=== PATIENT | female | born 2000 | race Two or more races ===

== ENCOUNTER 2022-04-06 16:40 | Emergency (ER) | payer MEDICAID ==
[~2022-04-06] VITALS: Ht 167.6 cm; Wt 55.0 kg
[2022-04-06 17:19] VITALS: BP 110/71
[2022-04-06 17:53] LABS: CLARITY,URINE SLIGHTLY CLOUDY (Clear); COLOR,URINE STRAW (Yellow); GLUCOSE, URINE NEGATIVE (Neg); KETONES,URINE NEGATIVE (Neg); LEUKOCYTE ESTERASE ,URINE MODERATE (Neg); NITRITES, URINE NEGATIVE (Neg); OCCULT BLOOD,URINE NEGATIVE (Neg); PROTEIN,URINE NEGATIVE (Neg); URINE HCG POSITIVE (NEG); UROBILINOGEN,URINE 0.2 E.U/dL (0.2-1.0)
[2022-04-06 17:54] LABS: UA COLLECTION TYPE CLN CATCH MIDSTREAM
[2022-04-06 18:01] LABS: SQUAMOUS EPITHELIAL CELL,UR MODERATE /LPF (FEW)
[2022-04-06 18:02] LABS: BACTERIA,URINE 2+ /HPF (Neg); RBC,URINE 0-2 /HPF (0-2); WBC,URINE 0-4 /HPF (0-4)
[2022-04-06] MEDS ORDERED: ONDA4TAB12 PO (19:03)
[2022-04-06] MEDS ORDERED: CEPH250T PO (19:03)
[2022-04-06] MEDS ORDERED: ondansetron 4mg rapidly disintigrating tab PO ONE (19:05)
[2022-04-06] MEDS ORDERED: cephalexin 250mg capsule PO ONE (19:05)
--- NOTE | 2022-04-06 19:37 | NUR ---
Cristiana carballo in [facility] - 04/06/22 at 1939 by [employer] D[employer] USED FOR ROMIE.
--- NOTE | 2022-04-06 19:39 | NUR ---
TRANSLATION DEVICE USED FOR [facility] LANGUAGE.
== END 2022-04-06 19:52 | disposition home or self-care (01) ==
LOC: ER 16:41
DX: O23.41 Unspecified infection of urinary tract in pregnancy, first trimester (principal); Z3A.01 Less than 8 weeks gestation of pregnancy; Z79.899 Other long term (current) drug therapy
CPT/HCPCS: 81001; 81025; 87088; 99283

== ENCOUNTER 2022-05-30 21:15 | Emergency (ER) | payer MEDICAID ==
[~2022-05-30] VITALS: Ht 167.6 cm; Wt 49.6 kg
[~2022-05-30 21:15] MED LIST: ONDA4TAB12 PO
[2022-05-30 21:56] LABS: CLARITY,URINE SLIGHTLY CLOUDY (Clear); COLOR,URINE YELLOW (Yellow); GLUCOSE, URINE NEGATIVE (Neg); KETONES,URINE NEGATIVE (Neg); LEUKOCYTE ESTERASE ,URINE SMALL (Neg); NITRITES, URINE NEGATIVE (Neg); OCCULT BLOOD,URINE NEGATIVE (Neg); PROTEIN,URINE NEGATIVE (Neg); UROBILINOGEN,URINE 0.2 E.U/dL (0.2-1.0)
[2022-05-30 22:01] LABS: BACTERIA,URINE 1+ /HPF (Neg); SQUAMOUS EPITHELIAL CELL,UR MANY /LPF (FEW); UA COLLECTION TYPE CLN CATCH MIDSTREAM
[2022-05-30 22:02] LABS: RBC,URINE 0-2 /HPF (0-2)
[2022-05-30 22:03] LABS: TRANSITIONAL EPI CELLS,URINE FEW /HPF
[2022-05-30 22:05] LABS: HCG SERUM QL POSITIVE
[2022-05-30 23:11] VITALS: BP 110/68
== END 2022-05-30 23:14 | disposition home or self-care (01) ==
LOC: ER 21:17
DX: O26.891 Other specified pregnancy related conditions, first trimester (principal); R10.30 Lower abdominal pain, unspecified; R42 Dizziness and giddiness; Z79.899 Other long term (current) drug therapy
CPT/HCPCS: 36415; 81001; 84703; 99284